=== PATIENT | male | born 2000 | race Caucasian/White ===

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

== ENCOUNTER 2018-05-25 17:28 | Emergency (ER) | payer OTHER ==
[~2018-05-25] VITALS: Ht 172.7 cm; Wt 77.3 kg
[~2018-05-25 17:28] MED LIST: ANUC25SU PR; COLA100C5 PO
[2018-05-25] MEDS ORDERED: MAXA10TA14 PO (17:39)
[2018-05-25] MEDS ORDERED: SUMA25TA3 PO (17:39)
[2018-05-25] MEDS ORDERED: diphenhydrAMINE INJ 50MG/ML VIAL (J1200) IV ONE (18:00)
[2018-05-25] MEDS ORDERED: NS 1,000 ML IV ONE (18:00)
[2018-05-25] MEDS ORDERED: METOCLOPRAMIDE INJ 10MG/2ML VIAL (J2765) IV ONE (18:00)
[2018-05-25] MEDS ORDERED: KETOROLAC 30 MG/ML VIAL (J1885) IV ONE (18:00)
--- NOTE | 2018-05-25 18:19 | REP ---
Head CT without contrast: History: Severe headache. Comparison study: No comparison study. CT findings: Bone window settings demonstrate an intact bony calvarium. There is no evidence of skull fracture or incidental bony calvarial lesion. The visualized paranasal sinuses appear clear. No intraorbital abnormality is seen. On soft tissue window setting images; the lateral, third, and fourth ventricles are normal in size and position. Salgado-white differentiation pattern is normal above and below the tentorium. There are is no evidence of intracranial hemorrhage. No mass, edema, infarction, or midline shift is seen. No extra-axial fluid collection is appreciated. Impression: Negative noncontrast head CT. Electronically Signed by George Garvin MD 05/25/2018 06:10 P
[2018-05-25 18:31] LABS: BASO # 0.1 10^3/uL (0.0-0.2); BASO % 0.8 % (0.0-1.0); EOS # 0.2 10^3/uL (0.0-0.50); EOS % 2.5 % (0.0-3.0); HEMATOCRIT 43.2 % (42.0-52.0); HEMOGLOBIN 13.7 g/dl (13.5-17.5); LYMPH # 2.1 10^3/uL (1.5-6.5); MEAN CORPUSCULAR HEMOGLOBIN 22.9 pg (27.0-33.0); MEAN CORPUSCULAR HGB CONC 31.7 g/dl (32.0-36.5); MEAN CORPUSCULAR VOLUME 72.2 fl (80.0-96.0); MONO # 0.7 10^3/uL (0.0-0.8); MONO % 8.4 % (0.0-5.0); NEUTROPHILS # 5.3 10^3/uL (1.8-7.7); NEUTROPHILS % 63.1 % (36.0-66.0); PLATELET COUNT, AUTOMATED 379 10^3/uL (150-450); RED BLOOD COUNT 5.98 10^6/uL (4.30-6.10); WHITE BLOOD COUNT 8.4 10^3/uL (4.0-10.0)
[2018-05-25 19:15] VITALS: BP 118/62
== END 2018-05-25 19:17 | disposition home or self-care (01) ==
LOC: M ED 17:28
DX: R51 Headache (principal)
CPT/HCPCS: 70450; 85025; 96374; 96375; 99284; J1200; J1885; J2765

== ENCOUNTER 2018-11-23 13:59 | Emergency (ER) | payer OTHER ==
[~2018-11-23] VITALS: Ht 170.2 cm; Wt 77.8 kg
[~2018-11-23 13:59] MED LIST changes: +MAXA10TA14 PO; +SUMA25TA3 PO
[2018-11-23] MEDS ORDERED: KETOROLAC TROMETHAMINE 10 MG TAB PO ONE (15:15)
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
[2018-11-23 15:57] VITALS: BP 111/67
== END 2018-11-23 15:58 | disposition home or self-care (01) ==
LOC: M ED 13:59
DX: Z04.1 Encounter for examination and observation following transport accident (principal); S09.90XA Unspecified injury of head, initial encounter; S13.9XXA Sprain of joints and ligaments of unspecified parts of neck, initial encounter; V49.40XA Driver injured in collision with unspecified motor vehicles in traffic accident, initial encounter

== ENCOUNTER 2018-12-01 17:38 | Emergency (ER) | payer OTHER ==
[~2018-12-01] VITALS: Ht 172.7 cm; Wt 75.9 kg
[2018-12-01 17:48] VITALS: BP 136/68
[2018-12-01] MEDS ORDERED: ZOLM5TAB PO (18:00)
[2018-12-01] MEDS ORDERED: AMIT10TA PO (18:00)
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
== END 2018-12-01 20:40 | disposition home or self-care (01) ==
LOC: M ED 17:38 → EDBD 17:38 → M ED 20:40
DX: Z04.1 Encounter for examination and observation following transport accident (principal); S06.0X0A Concussion without loss of consciousness, initial encounter; S16.1XXA Strain of muscle, fascia and tendon at neck level, initial encounter; S29.012A Strain of muscle and tendon of back wall of thorax, initial encounter; V49.40XA Driver injured in collision with unspecified motor vehicles in traffic accident, initial encounter

== ENCOUNTER 2019-06-08 13:10 | Emergency (ER) | payer OTHER ==
[~2019-06-08] VITALS: Ht 172.7 cm; Wt 80.3 kg
[~2019-06-08 13:10] MED LIST changes: +AMIT10TA PO; +ZOLM5TAB20 PO
[2019-06-08] MEDS ORDERED: ESCI10TA2 (13:30)
[2019-06-08] MEDS ORDERED: LIDOCAINE 1% MDV 20ML VIAL SC ONE (15:15)
[2019-06-08] MEDS ORDERED: DERMABOND TOPICAL SKIN ADHESIVE TOP ONE (15:30)
[2019-06-08] MEDS ORDERED: AUGMENTIN 875 MG TAB PO ONE (15:45)
[2019-06-08] MEDS ORDERED: AUGM875T28 PO ×2 (15:57→16:00)
[2019-06-08 16:11] VITALS: BP 152/65
== END 2019-06-08 16:14 | disposition home or self-care (01) ==
LOC: M ED 13:10
DX: S01.85XA Open bite of other part of head, initial encounter (principal); W54.0XXA Bitten by dog, initial encounter; Y92.9 Unspecified place or not applicable; Y93.9 Activity, unspecified; Y99.9 Unspecified external cause status

== ENCOUNTER 2019-06-16 18:21 | Emergency (ER) | payer OTHER ==
[~2019-06-16] VITALS: Ht 172.7 cm; Wt 79.3 kg
[~2019-06-16 18:21] MED LIST changes: +AUGM875T28 PO; +ESCI10TA2
[2019-06-16 18:22] VITALS: BP 118/59
[2019-06-16] MEDS ORDERED: AMIT10TA PO (18:30)
== END 2019-06-16 18:58 | disposition home or self-care (01) ==
LOC: M ED 18:21
DX: Z48.02 Encounter for removal of sutures (principal)

== ENCOUNTER 2019-11-27 19:13 | Emergency (ER) | payer OTHER ==
[~2019-11-27] VITALS: Ht 172.7 cm; Wt 74.7 kg
[2019-11-27] MEDS ORDERED: LIDOCAINE 4% CREAM 5GM (LMX4) TOP ONE (21:00)
--- NOTE | 2019-11-27 23:17 | REPVR ---
PROCEDURE INFORMATION: Exam: US Pelvis Limited, Male Exam date and time: 11/27/2019 10:53 PM Age: 19 years old Clinical indication: Hip pain; Left hip; Additional info: Pain hesselbachs triangle, L, R/O hernia TECHNIQUE: Imaging protocol: Real-time pelvic ultrasound with image documentation. COMPARISON: CT ABD/PEL W/IV CONTRAST ONLY 2017-12-26 17:19 FINDINGS: Soft tissues: No identified hernia in the left groin. Bilateral unremarkable inguinal canals. IMPRESSION: No identified hernia in the left groin. Bilateral unremarkable inguinal canals. Electronically signed by: Ethan Tavarez On 11/27/2019 23:17:47 PM
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
[2019-11-27] MEDS ORDERED: ASPE16CR TOP (23:21)
[2019-11-27 23:42] VITALS: BP 118/67
== END 2019-11-27 23:44 | disposition home or self-care (01) ==
LOC: M ED 19:13
DX: R10.30 Lower abdominal pain, unspecified (principal); Z79.899 Other long term (current) drug therapy